=== PATIENT | female | born 1990 | race Caucasian/White ===

== ENCOUNTER 2019-07-04 15:36 | Emergency (ER) | payer OTHER, SELFPAY ==
[2019-07-04 15:47] VITALS: BP 121/65; PULSE 73; RESP 18; TEMP 36.6; O2SAT 98
--- NOTE | 2019-07-04 16:19 | ED.URI ---
HPI - URI/Sore Throat General Chief Complaint: Upper Respiratory Infection Stated Complaint: GERARDO nausea and aches Time Seen by Provider: 07/04/19 16:19 Source: patient and family Limitations: no limitations History of Present Illness HPI Narrative: Patient presents with cough nasal congestion and body aches. Patient states her daughter was just at the [employer] and tested negative for influenza but she is afraid that she might have been would like to be tested for influenza today. Patient also requests a work note since she missed work today. MD elicited complaint: fever, rhinorrhea and nasal congestion Related Data Home Medications Medication Instructions Recorded Confirmed No Home Medications 07/04/19 07/04/19 Allergies Allergy/AdvReac Type Severity Reaction Status Date / Time No Known Allergies Allergy Unknown Unverified 02/04/19 17:49 Review of Systems Review of Systems: Narrative: CONSTITUTIONAL: Denies fever, chills, or sweats. EYES: Denies visual changes, redness, or discharge. ENT: Denies rhinorrhea, congestion, sore throat, or otalgia. CARDIOVASCULAR: Denies chest pain, palpitations, or edema. RESPIRATORY: Denies cough or dyspnea. GASTROINTESTINAL: Denies abdominal pain, nausea, vomiting, or diarrhea. GENITOURINARY: Denies dysuria or hematuria. SKIN: Denies rash or itching. MUSCULOSKELETAL: Denies back pain, joint pain, or myalgia. NEUROLOGIC: Denies headache, numbness, or weakness. PSYCHIATRIC: Denies anxiety or depression. PMFSH Comments At time of signature, agree with nursing past medical, surgical, social and family history. There is no relevant family history pertinent to the presenting complaint Exam Narrative: Exam Narrative: GENERAL: Well-appearing, well-nourished, and in no acute distress. HEAD: Normocephalic, atraumatic. EYES: PERRLA and EOMI. ENT: Nares clear, no rhinorrhea or epistaxis. Mucous membranes moist. NECK: Supple. CHEST: Clear to auscultation. No respiratory distress. HEART: Regular rate and rhythm. No murmur heard. Normal peripheral pulses. ABDOMEN: Soft, nontender, nondistended, normal active bowel sounds. EXTREMITIES: Normal range of motion. No edema. SKIN: Warm, dry, no rash. NEURO: No focal deficits. Alert and oriented x3. Andrzej Coma Scale Eye Opening: Spontaneous 4 Carter Coma Scale Motor: Obeys Commands 6 Andrzej Coma Scale Verbal: Oriented 5 Andrzej Coma Scale Total 15 Course Vital Signs Vital signs: Vital Signs Temperature 36.6 C 07/04/19 15:47 Pulse Rate 73 07/04/19 15:47 Respiratory Rate 18 07/04/19 15:47 Blood Pressure 121/65 07/04/19 15:47 Pulse Oximetry 98 07/04/19 15:47 Temperature 36.6 C 07/04/19 15:47 Pulse Rate 73 07/04/19 15:47 Respiratory Rate 18 07/04/19 15:47 Blood Pressure 121/65 07/04/19 15:47 Pulse Oximetry 98 07/04/19 15:47 MDM - URI/Sore Throat Differential Diagnosis Differential diagnosis: Likely upper respiratory infection, croup, sinusitis, viral infection, influenza and pharyngitis Lab Data Lab results narrative: Negative influenza Labs: Influenza A Screen Negative Reference Range: Negative Influenza B Screen Negative Reference Range: Negative Critical Care Time Critical Care Time Critical Care Time: No Discharge Plan Discharge Clinical Impression: Viral infection Upper respiratory infection Qualifiers: URI type: unspecified viral URI Qualified Code(s): J06.9 - Acute upper respiratory infection, unspecified Patient Disposition: Home, Self-Care Condition: Stable Instructions: Antibiotic Form Additional Instructions: *Throw away your current toothbrush and begin using a new toothbrush in 48 hours in order to prevent re-infection. If anyone else's toothbrush is stored near yours, they should also throw away their current toothbrush and begin using a new one. *Sanitize all reusable water bottles. *Do not share items
== END 2019-07-04 16:32 | disposition home or self-care (01) ==
PROVIDERS: Emergency Provider Nurse Practitioner Family
DX: B34.9 Viral infection, unspecified (principal); J06.9 Acute upper respiratory infection, unspecified
CPT/HCPCS: 87804; 99212; G0463

== ENCOUNTER 2020-09-04 10:14 | Emergency (ER) | payer OTHER, SELFPAY ==
[2020-09-04 10:21] VITALS: BP 146/77; PULSE 86; RESP 16; TEMP 36.3; O2SAT 97
--- NOTE | 2020-09-04 10:28 | ED.DENTAL ---
HPI - Dental/Oral General Chief complaint: Dental/Oral Stated complaint: URI/Dental/Oral Time Seen by Provider: 09/04/20 10:28 Source: patient and RN notes reviewed History of Present Illness HPI Narrative: Patient is a 30-year-old female who presents the urgent care with complaints of fractured right lower tooth. Patient states that she broke it approximately 1 month ago and has been increased in pain in the last week. Patient states she has been using ibuprofen. Patient also reports of some allergies/sinusitis with postnasal drainage, watery eyes, mild sore throat and headaches. Patient states that these are her typical symptoms . States that her symptoms started approximately 1 week ago and she has been taking [place] and Tylenol cold and sinus. Patient denies of any fevers, shortness of breath, known Covid or strep exposure. No other acute complaints. No acute distress noted. Patient aware of the plan of care. Some parts of this dictation were generated by voice recognition software and may contain typographical and/or grammatical inaccuracies. Related Data Allergies Allergy/AdvReac Type Severity Reaction Status Date / Time No Known Allergies Allergy Unknown Verified 09/04/20 10:32 Review of Systems Review of Systems: Narrative: CONSTITUTIONAL: Denies fever, chills, or sweats. EYES: Denies visual changes, redness, or discharge. ENT: Reports a mild sore throat, sinus congestion, postnasal drainage. Reports a painful fractured tooth to the lower right CARDIOVASCULAR: Denies chest pain, palpitations, or edema. RESPIRATORY: Reports of mild cough without dyspnea GASTROINTESTINAL: Denies abdominal pain, nausea, vomiting, or diarrhea. GENITOURINARY: Denies dysuria or hematuria. SKIN: Denies rash or itching. MUSCULOSKELETAL: Denies back pain, joint pain, or myalgia. NEUROLOGIC: Reports of intermittent headaches All other systems reviewed are negative, except as documented in HPI. PMFSH Comments At the time of my signature, I reviewed and agree with the nursing past medical, surgical, social, and family history. There is no relevant family history pertinent to the patient complaint. Exam Narrative: Exam Narrative: GENERAL: This is a well-nourished, well-developed patient, in no apparent distress. HEAD: normocephalic, atraumatic. EYES: PERRL. Sclera clear/white. Vision is grossly intact. EARS: External ears normal, auditory canals clear and without drainage, TMs normal without perforation. Hearing grossly intact. NOSE: External nose normal with no obvious nasal discharge, mild bilateral erythemic nares with clear rhinorrhea. THROAT: Mucous membranes moist, posterior pharynx clear. Mild postnasal drainage DENTAL: Multiple missing dentition. Notable posterior fracture test to lower right second premolar without any notable abscess. NECK: Neck supple, non-tender without lymphadenopathy CARDIOVASCULAR: Regular rate and rhythm without murmurs, gallops, or rubs. RESPIRATORY: Clear to auscultation. Breath sounds equal bilaterally. No wheezes, rales, or rhonchi. SKIN: warm, intact with no suspicious lesions or rash, good texture and turgor. NEURO: awake, alert, and oriented to person, place and time. There were no obvious focal neurologic abnormalities. EXTREMITIES: No clubbing, cyanosis, or edema. Course Vital Signs Vital signs: Vital Signs Temperature 97.4 F L 09/04/20 10:21 Pulse Rate 86 09/04/20 10:21 Respiratory Rate 16 09/04/20 10:21 Blood Pressure 146/77 H 09/04/20 10:21 Pulse Oximetry 97 09/04/20 10:21 Temperature 97.4 F L 09/04/20 10:21 Pulse Rate 86 09/04/20 10:21 Respiratory Rate 16 09/04/20 10:21 Blood Pressure 146/77 H 09/04/20 10:21 Pulse Oximetry 97 09/04/20 10:21 Reviewed-patient is informed that they may have pre-hypertension or hypertension based on a blood pressure reading in the department. I recommend the patient call the primary care provider listed on their discharge inst
== END 2020-09-04 10:45 | disposition home or self-care (01) ==
PROVIDERS: Emergency Provider Nurse Practitioner Family
DX: S02.5XXA Fracture of tooth (traumatic), initial encounter for closed fracture (principal); X58.XXXA Exposure to other specified factors, initial encounter; J32.9 Chronic sinusitis, unspecified; M79.7 Fibromyalgia
CPT/HCPCS: 99213; G0463